=== PATIENT | female | born 1990 | race Caucasian/White ===

== ENCOUNTER 2016-07-31 18:35 | Emergency (ER) | payer OTHER ==
[~2016-07-31] VITALS: Ht 154.9 cm; Wt 68.0 kg
--- NOTE | 2016-07-31 19:40 | ED HAND/WRIST INJURY COMPLAINT ---
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 LAST TETANUS VACCINATION 3YEARS AGO. Triage Nurses Notes Reviewed? yes Occurred: just prior to arrival Duration: minute(s):, constant, continues in ED Timing: recent history Injury Environment: home Severity: moderate, severe Pain/Injury Location: Left: Wrist. Method of Injury: laceration No Modifying Factors: none : No Patient currently breastfeeds: No HPI: 18-year-old female comes into emergency room for further evaluation after cutting her left wrist by accident. Patient reports that her 1-year-old son had pulled a ceramic dish out of the cabinet and it broke while she was moving him to get him away she cut her left wrist Biaxin XL one of the broken pieces. Patient immediately and wrapped the area. Tetanus shot up-to-date. Denies any injury anywhere else. Denies any numbness or tingling. (FILIPE DORADO) Past History Travel History Traveled to [place] past 21 day No Medical History Any Pertinent Medical History? see below for history Endocrine: hypothyroidism Surgical History Surgical History: non-contributory Psychosocial History What is your primary language German Tobacco Use: Never used Family History Hx Contributory? No (FILIPE DORADO) Review of Systems Review of Systems Constitutional: Reports: no symptoms. EENTM: Reports: no symptoms. Respiratory: Reports: no symptoms. Cardiovascular: Reports: no symptoms. GI: Reports: no symptoms. Genitourinary: Reports: no symptoms. Musculoskeletal: Reports: no symptoms. Skin: Reports: see HPI. Neurological/Psychological: Reports: no symptoms. Hematologic/Endocrine: Reports: see HPI. Immunologic/Allergic: Reports: no symptoms. All Other Systems: Reviewed and Negative (FILIPE DORADO) Physical Exam Physical Exam General Appearance: well developed/nourished, mild distress Head: atraumatic Eyes: Bilateral: normal appearance. Ears, Nose, Throat: normal ENT inspection, hearing grossly normal Neck: normal inspection Cardiovascular/Respiratory: regular rate/rhythm, no respiratory distress Back: normal inspection Wrist Left: 1 CM LACERATION LEFT WRIST Hand Left: normal inspection Hand Right: normal inspection Neurologic/Tendon: normal sensation, normal motor functions, normal tendon functions, responds to pain, no evidence tendon injury, no pulse deficit (RADIAL PULSE 2+ LEFT WRIST) Skin: intact, normal color, warm/dry Lymphatic: no anterior cervical krys Diagram Left Arm Front 1) 1 cm laceration, no active bleeding, radial pulses 2+, (FILIPE DORADO) Progress Differential Diagnosis: contusion, compartment syndrome, fracture, tenosynovitis , ARTERIAL LACERATION, SOFT TISSUE FOREIGN BODY, TENDON LACERATION Plan of Care: 07/31/2016 8:17:51 PM After patient was numbed with lidocaine she had mild some pulsatile bleeding. Likely more superficial artery. Patient had a strong radial pulse. Pre-and post-neurovascular was intact. She had good capillary refill in all her fingers and full range of motion of her hand/wrist. No suspicion for any type of radial artery laceration. Patient's wrist was observed for about 5-10 minutes with no compression dressing on it with no recurrent bleeding. Radial pulse was reassessed multiple times and continued to remain strong 2+. Bacitracin placed. Compression wrap placed. Patient was educated on changing the dressing and returning in 7 days for suture removal. Watch for signs of infection such as redness or discharge fever chills. Patient tolerated the procedure well. She has complained of some mild numbness in her fingers after she was anesthetized. However she had full sensation on exam. Motor strength was intact. Case was discussed with Dr. Alexis and he agrees with plan of care. (FILIPE DORADO) Departure Departure Disposition: HOME OR SELF CARE Condition: Stable Clinical Impression Primary Impression: Laceration of left wrist Referrals: CARIN MONTAÑO MD (PCP/Family) Additional Instructions: Return in 7-10 days for suture removal. Return if any increased bleeding, increased numbness or tingling to hand, discoloration of hand, or weakness with glazier structural glass strength in left hand. Keep area clean and dry. Keep covered with bacitracin for first 5 days. Please go over all results of today's visit with your primary care doctor. Contact your primary care doctor to let them know you were here in the emergency room. There may be nonspecific findings which may not be related to your visit today here in the emergency room but may require further evaluation and chronic monitoring by your primary care doctor. If you had a laceration today the chance of foreign body always remains. You should follow-up with your primary care doctor for recheck in 3-5 days for a wound check. If you had an x-ray done there is a chance that a fracture could have been missed on initial read and you should follow-up with your primary care doctor for repeat x-rays if symptoms persist. If your blood pressure was elevated here in the emergency room please have rechecked by her primary care doctor within the next 48 hours by your primary care doctor. If you were prescribed a narcotic here in the emergency room or any type of controlled substances you're not allowed to drive while taking this medication or operate any type of heavy machinery. Narcotics can make you feel lightheaded dizziness nausea and can cause constipation. You may need to case picker a stool softener. Thank you for choosing [facility] emergency room. Please return to the emergency room immediately if you have any other concerns worsening of symptoms. Departure Forms: Customer Survey General Discharge Information (FILIPE DORADO) PA/SHEEPSKIN PICKLER Co-Sign Statement Statement: ED Attending supervision documentation- [] I saw and evaluated the patient. I have also reviewed all the pertinent lab results and diagnostic results. I agree with the findings and the plan of care as documented in the PA's/SHEEPSKIN PICKLER's documentation. [x I have reviewed the ED Record and agree with the PA's/SHEEPSKIN PICKLER's documentation. [] Additions or exceptions (if any) to the PAs/SHEEPSKIN PICKLER's note and plan are summarized below: [] (HARRIETT HESS,CARMEN Fam) Procedures Laceration/Wound Repair Progress: 1 cm laceration left wrist, Betadine prepped, irrigated with copious amounts of saline, 1% lidocaine, 2 mL injected, 4. 0 nylon, 2 sutures placed, patient tolerated procedure well, there was some bleeding that occurred with the anesthetizing and suturing but with direct pressure leading completely resolved on its own, sterile technique, (FILIPE DORADO)
[2016-07-31 19:56] VITALS: BP 122/74
== END 2016-07-31 19:57 ==
LOC: ERH 18:35
DX: S61.512A Laceration without foreign body of left wrist, initial encounter (principal); W45.8XXA Other foreign body or object entering through skin, initial encounter; Y92.9 Unspecified place or not applicable; Y93.9 Activity, unspecified